=== PATIENT | male | born 1955 | race Caucasian/White ===

== ENCOUNTER 2017-02-08 11:26 | Observation (INO) ==
[2017-02-08] MEDS ORDERED: DILTIAZEM 50 MG/10 ML VIAL IV STA (12:17)
[2017-02-08] MEDS ORDERED: FUROSEMIDE 40 MG/4 ML VIAL IV STA (12:17)
[2017-02-08] MEDS ORDERED: ASPIRIN 325 MG TABLET PO STA (12:17)
[2017-02-08] MEDS ORDERED: APIXABAN 5 MG TABLET PO STA (12:19)
[2017-02-08] MEDS ORDERED: FUROSEMIDE 40 MG/4 ML VIAL ONE (12:37)
[2017-02-08] MEDS ORDERED: APIXABAN 5 MG TABLET ONE (12:37)
[2017-02-08] MEDS ORDERED: DILTIAZEM 50 MG/10 ML VIAL IV ONE (12:37)
[2017-02-08] MEDS ORDERED: ASPIRIN 325 MG TABLET ONE (12:37)
[2017-02-08 12:47] LABS: Basophils # 0.1 10*3/uL (0.0-0.2); Basophils % 0.9 % (0.0-0.8); Eosinophils # 0.1 10*3/uL (0.0-0.87); Eosinophils % 1.4 % (0.00-10.9); Hematocrit 45.9 VOL% (42.0-52.0); Hemoglobin 14.9 GM/DL (14.0-18.0); Immature Granulocytes % 0.3 %; Immature Granulocytes Absolute 0.03 #; Lymphocytes # 1.5 10*3/uL (1.4-4.0); Lymphocytes % 15.5 % (21.2-54.2); Mean Corpuscular HGB Conc 32.5 GM/DL (32-36); Mean Corpuscular Hemoglobin 28 PG (27-34); Mean Corpuscular Volume 87.4 FL (87-102); Mean Platelet Volume 9.8 FL (9.6-12.0); Monocytes # 0.8 10*3/uL (0.11-0.8); Monocytes % 8.4 % (1.7-12.7); Neutrophils # 7.1 10*3/uL (1.4-7.4); Neutrophils % 73.5 % (38.7-73.9); Platelet Count 303 T/CUMM (130-400); Red Blood Count 5.25 MC/CUMM (3.8-5.5); Red Cell Distribution Width 14.9 % (9.3-17.3); White Blood Count 9.7 T/CUMM (4-12)
--- NOTE | 2017-02-08 12:49 | XRay Report ---
Portable chest Date: 02/08/2017 Clinical history: Shortness of breath Comparison: 12/20/2014 Technique: Portable AP sitting chest Findings: The heart is larger in size with cardiac fat pads. Progressive parenchymal findings at the lung bases. Stable mediastinum with degenerative changes. Impression: Minimal cardiomegaly with findings as can be seen with mild CHF. Some of the density of the left lung base may be related to larger cardiac fat pad. PROCEDURE INTERPRETED AT [facility] DEPARTMENT OF RADIOLOGY Final Report Signed by: Dr. Carlota Ward
[2017-02-08 13:18] LABS: Free T4 (Free Thyroxine) 1.3 NG/DL (0.76-1.46); Magnesium 2.3 MG/DL (1.8-2.4)
[2017-02-08 13:25] LABS: Albumin 3.6 G/DL (3.4-5.0); Bilirubin,Total 0.8 MG/DL (0.2-1.0); Calcium 8.6 MG/DL (8.5-10.1); Osmolality,Calculated 278.5 MOS/KG (273-304); Potassium 4.2 MMOL/L (3.5-5.1); Thyroid Stimulating Hormone 2.01 uIU/ml (0.358-3.74); Total Protein 7.3 G/DL (6.4-8.3); Troponin I Only 0.023 NG/ML (0.00-0.045)
[2017-02-08 13:50] LABS: Barbiturates Screen,Urine Negative (Negative); Benzodiazepines Screen,Urine Negative (Negative); Cannabinoid Screen,Urine Negative (Negative); Opiate Screen,Urine Negative (Negative); Phencyclidine Screen,Urine Negative (Negative)
--- NOTE | 2017-02-08 14:01 | Emergency Department Note ---
Lesly Lisa Mantricia, am scribing for, and in the presence of, Carlos Brown MD 12:40. Kevin Lisa Phillip K, MD, personally performed the services described in this documentation, ascribed by Walt Grace in my presence, and it is both accurate and complete [id number] . Arrival - Arrival Chief Complaint: Blood Pressure Stated Complaint: referred fromn Dr Schneider's office ED Nursing Triage Note: pt had an appointment to see a dental but was sent to dr schneider's office for high bp. pt was sent from dr schneider's office for high bp Mode of Arrival: Wheelchair Limitations: No Limitations Source: Patient Time Seen by Provider: 02/08/17 11:51 - History of Present Illness HPI Narrative: Pt is a 61 y/o male arriving to ED with c/o high blood pressure that onset a few days ago. Pt was seen in [place] by a dentist because he had an abscess on his tooth. He was to report back to dentist to get the tooth pulled; however, the dentist would not pull his tooth because his blood pressure was extremely high at that time. The dentist recommended that he come to ED; however since being here, pt's blood pressure has decreased to 165/99 at time of exam. Pt denies HTN, but states he has not been to the doctor in years and states that he usually checks his pressure himself daily until a few days ago. He also denies ever being Dx with Afib, but reports that at night, sleeping is uncomfortable due to an irregular heart beat. He also recalls being on vacation in [place] and becoming extremely SOB. Pt also states that his legs have been swelling for a while now, but goes down at rest. He reports no other concerns. Onset (ago): day(s) Consistency: constant Severity: mild Severity scale (1-10): 3 Allergies/Adverse Reactions: Allergies Allergy/AdvReac Type Severity Reaction Status Date / Time No Known Allergies Allergy Unverified 02/08/17 11:37 Home Medications: Home Medications Medication Instructions Recorded Confirmed Type Aspirin [Aspirin EC] 243 mg PO DAILY 02/08/17 02/08/17 History Review of System - Review of System 12 point system: reviewed and no additional remarkable complaints except as stated - Review of System Constitutional: Present: other (high blood pressure). Absent: chills, diaphoresis, fever Eyes: Absent: discharge, pain Head/Ears/Nose/Throat: Absent: earache Respiratory: Absent: cough, respiratory distress, wheezing Cardiovascular: Present: dyspnea on exertion, other (irregular heart beat). Absent: chest pain, palpitations Gastrointestinal: Absent: abdominal pain, nausea, vomiting, diarrhea Genitourinary male: Absent: urgency, dysuria Musculoskeletal: Present: arthralgia, other (leg swelling bilat). Absent: arm pain, back pain, leg pain, neck pain Skin: Absent: rash, lesions Neurological: Absent: headache, weakness Psychiatric: Absent: anxiety, depression Endocrine: Absent: cold intolerance, fatigue Medical,Surgical,& Family Hx - Social History Smoking Status: Never smoker Frequency of Alcohol Use: Occasionally Type of Drug Use: None Exam Vital Signs: Vital Signs Temperature 98.9 F 02/08/17 12:00 Pulse Rate 113 H 02/08/17 12:00 Respiratory Rate 18 02/08/17 12:00 Blood Pressure 165/99 02/08/17 12:00 O2 Sat by Pulse Oximetry 97 02/08/17 12:00 - General General appearance: alert, in no apparent distress - Head Head exam: Present: atraumatic, normocephalic, normal inspection - Eye Eye exam: Present: normal appearance, PERRL, EOMI - ENT ENT exam: Present: normal exam, normal oropharynx, mucous membranes moist, TM's normal bilaterally, normal external ear exam - Neck Neck exam: Present: normal inspection, full ROM, trachea midline. Absent: tenderness - Chest Chest inspection: Present: normal inspection, symmetric chest wall rise. Absent : tenderness - Respiratory Respiratory exam: Present: normal lung sounds bilaterally - Cardiovascular Cardiovascular exam: Present: normal rhythm, tachycardia, normal heart sounds - Abdominal Exam Abdominal exam: Present: soft, normal bowel sounds. Absent: distention, tenderness, guarding, rebound - Extremities Exam Extremities exam: Present: full ROM, normal capillary refill, other (3+ pitting edema bilat). Absent: tenderness - Back Exam Back exam: Present: normal inspection, full ROM. Absent: tenderness - Neurological Exam Neurological exam: Present: alert, oriented X3, CN II-XII intact, normal gait, reflexes normal - Psychiatric Psychiatric exam: Present: normal affect, normal mood - Skin Skin exam: Present: warm, dry, intact, normal color Results - Labs CBC & BMP: 02/08/17 12:22 02/08/17 12:22 Lab Results: I have reviewed the patients labs Labs: Laboratory Tests 02/08/17 12:22 Lymph % (Auto) 15.5 L Baso % (Auto) 0.9 H - EKG EKG results: interpreted by ERMD (Atrial fibrillation with RVR) - Diagnostic Findings Procedure: Chest x-ray: report reviewed by me (Minimal cardiomegaly with findings as can be seen with mild CHF. Some of the density of the left lung base may be related to larger cardiac fat pad. ) Disposition Clinical Impression: Atrial fibrillation with RVR, Hypertension, CHF NYHA class III (symptoms with mildly strenuous activities) Case discussed with: patient Disposition: Still a Patient Condition: Guarded Additional Instructions: Admit to Dr. Gunter
[2017-02-08] MEDS ORDERED: MAGNESIUM SULF RIDER 2 GM in PREMIX 1 EACH IV PRN (15:08)
[2017-02-08] MEDS ORDERED: ONDANSETRON 4 MG/2 ML VIAL IV PRN (15:08)
[2017-02-08] MEDS ORDERED: ACETAMINOPHEN 325 MG TABLET PO PRN (15:08)
[2017-02-08] MEDS ORDERED: MAGNESIUM SULF RIDER 4 GM in PREMIX 1 EACH IV PRN (15:08)
--- NOTE | 2017-02-08 15:41 | Cardiology History & Physical ---
Assessment and Plan - Time spent with patient Time spent with patient: Greater than 30 minutes (1) Dyspnea on exertion Status: Acute Assessment and plan: This is exacerbated recently. Certainly is made cardiac associated with his hypertension or atrial fibrillation versus other. We will evaluate the patient' s LV function and especially improved with improvement in his blood pressure and atrial fibrillation. Current Visit: Yes (2) Obesity Status: Chronic Assessment and plan: This is a chronic issue and I doubt is motivated to lose weight. Current Visit: Yes (3) Atrial fibrillation with RVR Status: Acute Assessment and plan: I suspect this is more likely to some degree chronic with his history. It is never been diagnosed though. Our plan is to be controlled his heart race and anticoagulate the patient. He has no complications of this. Current Visit: Yes (4) Hypertension Status: Acute Assessment and plan: I suspect this is more likely chronic with his history. It is never been diagnosed though. We will medically manage this Current Visit: Yes History of Present Illness Chief complaint: dyspnea, atrial fibrillation, hypertension History of present illness: Mr. Barnhart is a 61 year old male who presented today to the emergency room after being and Dr. Schneider's office and the nurse noted that his blood pressure was high his heart was irregular. He was seen in the emergency room where he was in atrial fibrillation with rapid ventricular response in his blood pressure was severely elevated. He was sent to Dr. Barron's office after his dentist told him his blood pressure was severely elevated. Patient has no prior diagnosis of hypertension or atrial fibrillation or other medical issues. He does note that he is been told his pressures been elevated before and in fact when he had cataract surgery 2 or 3 years ago the almost didn 't do one procedures with blood pressures elevated but gave him something to bring him down. There is been other times is been comments about his blood pressure being elevated. Today presented to the emergency room after being seen at Dr. Schneider's office by the nurse who noted he was in atrial fibrillation and severely elevated blood pressure. He is having complaints of dyspnea as well as noted irregular heartbeat and elevated blood pressures. Below discussed each of these. Dyspnea that he has had probably anywhere from 1-2 years. Is recently worsened. In fact a few weeks ago he was going to [place] and after getting on the plane he felt so dyspneic he almost got off. Should be noted that while in [place] he felt a little febrile may be and had a Z-Kirby. This made her feel much better even from his shortness of breath. Recently he was started antibiotics for his to this seemed to make it feel better as well. If he walks slowly he does not have that much dyspnea. As well fatigability with this. He denies any asthma or wheezing. No coughing or sputum production. Denies fever chills. He has noted his elevated blood pressure for 2+ years up and down. [place]. He knows 2-3 years ago when he had cataract surgery at one of the times the almost did not do the surgery because of his blood pressure being up. They gave him some medication to bring it down. He has noted his blood pressure up and down but has not sought medical care. Today was over 200 systolic. It was noted today that he was in atrial fibrillation at Dr. Schneider's office. He is noted for up to 2+ years that frequently when he checks his blood pressure that his device notes that he is heart rate is fast and irregular. Again he has not sought medical care for this. In the emergency room his heart rate was markedly increased and was placed on diltiazem. The patient denies a prior car K strip cardiac testing. As noted is had no fever chills and never been told he had a heart murmur. His last ECG was maybe about 2 years ago at the [facility]. We need to get those records. Home Medications Medication Instructions Recorded Confirmed Type Aspirin [Aspirin EC] 81 mg PO DAILY 02/08/17 02/08/17 History Penicillin Vk Tab 500 mg PO Q6H 02/08/17 02/08/17 History Allergies Allergy/AdvReac Type Severity Reaction Status Date / Time No Known Allergies Allergy Unverified 02/08/17 11:37 Review of systems: Constitutional: Denies anorexia, chills, fatigue, fever, frequent falls, night sweats, weight gain, weight loss Eyes: Denies visual changes or loss of vision Ears: Denies decreased hearing, vertigo Nose, mouth and throat: Denies dysphagia, epistaxis, headaches, neck pain, tongue swelling, Neck: Denies thyromegaly or masses. No stiffness. Cardiovascular: as per HPI Respiratory: Denies cough, hemoptysis, dyspnea on exertion, wheezing. Dyspnea on exertion as described in HPI. Gastrointestinal: Denies abdominal pain, constipation, dyspepsia, dysphagia, hematemesis, hematochezia, melena, nausea, vomiting Genitourinary: Denies dysuria, hematuria, nocturia Musculoskeletal: Denies arthralgias, joint swelling, muscle weakness, myalgias Neurological: denies abnormal gait, abnormal speech, confusion, convulsions, frequent falls, headaches, memory loss, syncope Psychiatric: Denies anxiety, confusion, depression Endocrine: Denies cold intolerance, fatigue, heat intolerance Hematologic/Lymphatic: Denies easy bleeding, easy bruising Dermatologic: Denies Rash, itching, shingles Medical,Surgical,& Family Hx - Medical History Cardio: History of: Cardiac Dysrhythmia, Hypertension Psychological: No history of: Anxiety Disorders, Psychiatric Problems Neurology: No history of: Cerebral Hemorrhage, Cerebrovascular Accident, TIA, Vertigo HEENT: No history of: Ear Problem, Eye Problem Endocrine: No history of: Thyroid Disorder, Endocrine Problems Rheumatology: No history of;: Rheumatological Problems Respiratory: History of: Respiratory Problems (dyspnea as described in HPI) Renal: No history of: Renal Problems Genitourinary: No history of: Problems Gastrointestinal: No history of: Gastrointestinal Bleed, Hematochezia, Hepatitis, Liver Problems Musculoskeletal: No history of: Musculoskeletal Problems Hematology: No history of: Blood Disorders Reproductive: No histroy: Reproductive Problems - Surgical History HEENT Surgeries: Surgical HX of: Eye Surgery (bilateral cataract surgery) - Family History Family History: Reports;: Additional Family History (mother with pacemaker but no CAD) - Social History Smoking Status: Never smoker Frequency of Alcohol Use: Occasionally Type of Drug Use: None Marital Status: Single Lives With:: Alone Functional capacity: independent ambulation Cardiology Physical Exam - Constitutional Vitals: Vital Signs Temp Pulse Resp BP Pulse Ox 98.9 F 107 H 18 156/113 98 02/08/17 12:00 02/08/17 15:22 02/08/17 14:30 02/08/17 14:30 02/08/17 14:30 Exam: General appearance: Obese, no acute distress Head exam: normal inspection, atraumatic Eye exam: Pupils are equal and reactive. EOMI. There is no trauma. Ear exam: Anatomically normal. Normal auditory acuity to conversation. Oral exam: No significant oral lesions. Neck exam: normal inspection no JVD. No carotid bruit. Trachea is in midline. Respiratory exam: clear to auscultation bilaterally posteriorly and anteriorly with good air movement. No rales, rhonchi or wheezes. Cardiovascular exam: Irregular rhythm and tachycardic, no murmur or gallop or rub. No precordial lift. No bruits over the major arteries. Chest wall/torso: Anatomically normal. No tenderness, deformity Peripheral Pulses: 2+ throughout. GI/Abdominal exam: Obese with normal bowel sounds, soft and nontender, no abdominal bruits or pulsatile masses. Musculoskeletal/Extremities exam: Trace lower extremity edema. No deformities or trauma. Neurological exam: alert, oriented X3. There is no gross neurologic deficits. Psychiatric exam: normal affect, normal mood. Cognitive function is grossly intact. Skin exam: normal color, warm. No rashes or other skin lesions. Result/EKG - Labs CBC & BMP: 02/08/17 12:22 02/08/17 12:22 Lab Results: I have reviewed the past 24 hour labs - Impressions Impressions: ECG with atrial fibrillation rapid ventricular response. There is no acute ECG changes otherwise.
[2017-02-08] MEDS ORDERED: PENICILLIN VK 500 MG TABLET PO SCH (16:00)
[2017-02-08] MEDS: DILTIAZEM 60 MG TABLET PO SCH ×2 (16:17→21:46)
[2017-02-08] MEDS: PENICILLIN VK 500 MG PO SCH ×2 (16:25→17:58)
[2017-02-08] MEDS: APIXABAN 5 MG TABLET PO SCH (21:47)
[2017-02-08] MEDS: CARVEDILOL 6.25 MG TABLET PO SCH (21:47)
[2017-02-09] MEDS: PENICILLIN VK 500 MG PO SCH ×3 (00:43→12:06)
[2017-02-09] MEDS ORDERED: ASPIRIN EC 81 MG TABLET PO SCH (09:00)
--- NOTE | 2017-02-09 09:06 | EKG Report ---
Stationary ECG Study [facility] Test Date: 02/08/2017 12:19:46 PM Pat Name: ABBY MANNING Department: Room: 265 Gender: M Apns: : 1955 Requested by: Carlos Carlton Order Number: [id number] Reading MD: KIMI MCADAMS Intervals [place] Rate: 125 P: 999 HI: 0 QRS: 47 QRSD: 79 T: 53 QT: 297 QTc: 371 Interpretive Statements ATRIAL FIBRILLATION WITH RAPID VENTRICULAR RESPONSE MINIMAL ST DEPRESSION ABNORMAL RHYTHM ECG Electronically Signed On 02-14-17 10:47:56 CDT by KIMI MCADAMS [email or web address]
[2017-02-09] MEDS: CARVEDILOL 6.25 MG TABLET PO SCH (09:14)
[2017-02-09] MEDS: DILTIAZEM 60 MG TABLET PO SCH ×2 (09:14→12:06)
[2017-02-09] MEDS: APIXABAN 5 MG TABLET PO SCH (09:14)
--- NOTE | 2017-02-09 11:31 | ECHO Report ---
Leeroy Barnhart Exam Date: 02/08/2017 16:15 Referring Physician: Technologist: Barbara You LRLINCOLN Age: 61 Ht (in): 70 Wt (lb): 319 Gender: M Exam Location: [facility] Echo Indications: New on set of a Fib BP: 143 / 95 HR: 110 Rhythm: Atrial fibrillation Technical Quality: Fair IMPRESSIONS 1. Patient is in atrial fibrillation with ventricular response in the 90s. 2. Left ventricle is normal size mild concentric left ventricular hypertrophy and an ejection fraction of 50-55%. 3. Right ventricle is normal size and systolic function. 4. Left atrium is moderately dilated. 5. Right atrial is mildly increased in size. 6. Aortic valve is normal. 7. Mitral valve with posterior annular calcification and mild regurgitation. 8. Trace to mild tricuspid regurgitation. 9. Right-sided pressures are normal. MEASUREMENTS (Male / Female) Normal Values 2D ECHO LV Diastolic Diameter PLAX 4.0 cm 4.2 - 5.9 / 3.9 - 5.3 cm LV Systolic Diameter PLAX 3.3 cm LV Fractional Shortening PLAX 18.6 % IVS Diastolic Thickness 1.8 cm 0.6 - 1.0 / 0.6 - 0.9 cm LVPW Diastolic Thickness 1.6 cm 0.6 - 1.0 / 0.6 - 0.9 cm RV Internal Dim ED PLAX 2.6 cm Aortic Root Diameter 2.7 cm LA Systolic Diameter LX 4.9 cm 3.0 - 4.0 / 2.7 - 3.8 cm DOPPLER TR Peak Velocity 244.0 cm/s TR Peak Gradient 23.8 mmHg FINDINGS Left Ventricle Left ventricle is normal size with mild concentric left ventricular hypertrophy. Ejection fraction is probably in the 50-55% range. Unable to determine diastolic dysfunction with the patient's heart rate in atrial fibrillation. Right Ventricle Normal right ventricular size and systolic function. Right Atrium Probably mildly increased right atrial size. Left Atrium Moderately increased left atrial diameter. Mitral Valve Mild mitral valve sclerosis/some posterior annular calcification. Mild mitral valve regurgitation. Aortic Valve Aortic valve sclerosis without stenosis or regurgitation. Tricuspid Valve Morphologically normal tricuspid valve. Trace to mild tricuspid valve regurgitation. Tricuspid regurgitation velocities suggest a PAP of 23.8 mmHg + RAP. Pulmonic Valve Morphologically normal pulmonic valve. Pericardium No pericardial effusion. Aorta Normal size aortic root and proximal ascending aorta. Abdiaziz Gunter MD (Electronically Signed) Final Date: 09 Feb 2017 11:30
--- NOTE | 2017-02-09 12:42 | Discharge Summary ---
<Inocencia Cano - Last Filed: 02/09/17 12:40> Hospital Course - Hospital Course Hospital Course: Driver Salesman: Dr. Gunter (new) PCP: Dr. Schneider Mr. Barnhart is a 61 year old male who presented to the emergency room after being seen at Dr. Schneider's office. He was advised to be further evaluated in the emergency department due to his hypertension and irregular heart rhythm. Upon arrival to the emergency room, he was in atrial fibrillation with rapid ventricular response and his blood pressure was severely elevated. Patient has no prior diagnosis of hypertension or atrial fibrillation or other medical issues. However, he confirmed over the last 2+ years that frequently when he checks his blood pressure that his device notes that he is heart rate is fast and irregular. It is suspected that his afib is most likely to some degree chronic, given his history. It is never been diagnosed though. Patient was started on diltiazem and anticoagulated with Eliquis. He is now rate controlled. Currently, in atrial fibrillation with heart rates in the 80's. Electrolytes stable, potassium 4.2. TSH within normal limits. Blood pressure is much better controlled after initiation of Coreg. This will be continued at discharge. Patient underwent echocardiogram this admission which revealed normal LV size with mild concentric left ventricular hypertrophy with ejection fraction of 50-55%. Left atrium was moderately dilated. Right atrium mildly increased in size. Mild MR, trace to mild TR and normal right-sided pressures were also noted. Patient is now anxious for discharge home. Having felt the patient is at maximal medical therapy, he will be discharged home in stable condition. Of note, patient also complained of symptoms concerning for sleep apnea which could possibly be contributing to his atrial fibrillation. He has been given an appointment with Dr. Siu for outpatient sleep study. Patient has also been given a follow-up with Dr. Gunter in 1 week with CBC, BMP, magnesium and EKG. Patient verbalizes understanding of discharge instructions and discharge medications. Patient's discharge medications will include the following: Eliquis 5 mg p.o. twice daily Coreg 6.25 mg p.o. twice daily Cardizem 240 mg p.o. daily - Time spent with patient Time with patient DS: Greater than 30 minutes Diagnosis - Discharge Diagnosis (1) Atrial fibrillation with RVR Status: Resolved Specialty Discharge - Follow Up or Referrals Follow up with: Abdiaziz Gunter MD [Physician] - 02/18/17 8:40 am (Patient will need follow-up with Dr. Gunter in 1 week with CBC, BMP, magnesium and EKG. Be there February 15 at 11:00 a.m. for lab work.) Shelby Siu MD [Physician] - (Patient needs appointment with Dr. Siu for outpatient sleep study. ) Discharge Plan - Discharge Data Disposition: Disch To Home/Self Care Condition at Discharge: Stable Discharge Diet: heart healthy Activity: resume usual activities as tolerated Hygiene: no restrictions Weight Bearing at Discharge: weight bear as tolerated Driving: no restrictions Contact your physician if you experience:: fever over 101, Difficulty voiding, Redness or swelling, Nausea/Vomiting, Shortness of breath, Bleeding, pain uncontrolled by pain medications - Discharge Medications New Diltiazem Cd Cap [Cardizem CD] 240 mg PO BEDTIME #30 capsule Apixaban [Eliquis] 5 mg PO BID #60 tablet Carvedilol [Coreg] 6.25 mg PO BID #60 tablet Discontinued Aspirin [Aspirin EC] 81 mg PO DAILY Penicillin Vk Tab 500 mg PO Q6H - Follow Up or Referral Follow Up: Abdiaziz Gunter MD [Physician] - 02/18/17 8:40 am (Patient will need follow-up with Dr. Gunter in 1 week with CBC, BMP, magnesium and EKG. Be there February 15 at 11:00 a.m. for lab work.) Shelby Siu MD [Physician] - (Patient needs appointment with Dr. Siu for outpatient sleep study. ) - Forms/Instructions Exam - Constitutional Vitals: Period Temp Pulse Resp BP Sys/Tyson Pulse Ox Last 24 Hr 97.0 F-98.0 F 67-801 18-20 126-156/80-113 96-99 Exam: General appearance: Obese, no acute distress Head exam: normal inspection, atraumatic Eye exam: Pupils are equal and reactive. EOMI. There is no trauma. Ear exam: Anatomically normal. Normal auditory acuity to conversation. Oral exam: No significant oral lesions. Neck exam: normal inspection no JVD. No carotid bruit. Trachea is in midline. Respiratory exam: clear to auscultation bilaterally posteriorly and anteriorly with good air movement. No rales, rhonchi or wheezes. Cardiovascular exam: Irregular rhythm, no murmur or gallop or rub. No precordial lift. No bruits over the major arteries. Chest wall/torso: Anatomically normal. No tenderness, deformity Peripheral Pulses: 2+ throughout. GI/Abdominal exam: Obese with normal bowel sounds, soft and nontender, no abdominal bruits or pulsatile masses. Musculoskeletal/Extremities exam: Trace lower extremity edema. No deformities or trauma. Neurological exam: alert, oriented X3. There is no gross neurologic deficits. Psychiatric exam: normal affect, normal mood. Cognitive function is grossly intact. Skin exam: normal color, warm. No rashes or other skin lesions. Discharge Results - Imaging and Cardiology Procedure: Ultrasound: report reviewed by me DS: Provider Date of admission: 02/08/17 14:10 Primary care physician: . No PCP Attending physician on admission: Jigna Nunez Discharging clinician: Inocencai Cano NP Expected date of discharge: 02/09/17 <Abdiaziz Gunter - Last Filed: 02/09/17 14:00> Hospital Course - Hospital Course Hospital Course: Patient personally interviewed and examined by me and chart reviewed. Discussed patient's case with Inocencia Cano NP. Patient done well since being admitted. Blood pressures are markedly improved as is his heart rate. His echocardiogram reveals fairly normal left ventricular function without gross abnormalities. In discussion clinically he has sleep apnea and his further evaluation. On discharge to make arrangements for him to see Dr. Siu in sleep clinic. He'll have follow-up with me and we will see how he is been in his medications in the follow-up by the treating him with medication and may eventually require elective cardioversion. Discussed this with the patient is agreeable with the plan. Diagnosis - Discharge Diagnosis (1) Dyspnea on exertion Status: Acute (2) Obesity Status: Chronic (3) Atrial fibrillation with RVR Status: Resolved (4) Hypertension Status: Acute
[2017-02-09 16:45] VITALS: BP 136/86
[2017-02-09] MEDS ORDERED: DILTIAZEM CD 240 MG CAPSULE PO SCH (21:00)
== END 2017-02-09 16:00 | disposition home or self-care (01) ==
LOC: N.EDINP 11:26 → N.ED 11:26 → N.TELES 14:45
PROVIDERS: ADMIT Internal Medicine Cardiovascular Disease; ATTEND Internal Medicine Cardiovascular Disease